=== PATIENT | female | born 1990 | race Caucasian/White ===

== ENCOUNTER 2017-07-28 22:41 | Emergency (ER) | payer BC, MEDICAID ==
[~2017-07-28] VITALS: Ht 160 cm; Wt 55.2 kg
[~2017-07-28 22:41] MED LIST: ACET325T14 PO; BUSP10TA PO; IBUP-1223 PO; IBUP-1484 PO; IBUP200C5; LURA40TA PO; ONDA4TAB7 PO; OXYC-302 PO; PREN1TAB60 PO; SERT50TA PO; ZOLP-413 PO
[2017-07-28] MEDS ORDERED: SODIUM CHLORIDE 0.9% 1,000ML IVBOLUS ONE (23:30)
[2017-07-29 00:12] LABS: HEMATOCRIT 39.3 % (34.6-47.8); HEMOGLOBIN 13.7 g/dL (11.7-16.4); WHITE BLOOD COUNT 5.9 x10^3/uL (3.4-10)
[2017-07-29 00:24] LABS: ASPARTATE AMINO TRANSFERASE 19 U/L (15-37); BLOOD UREA NITROGEN 13 mg/dL (7-18)
[2017-07-29] MEDS ORDERED: ONDANSETRON 2MG/ML, 2ML IVPush ONE (00:30)
[2017-07-29] MEDS ORDERED: ONDANSETRON 2MG/ML, 2ML ONE (00:41)
[2017-07-29] MEDS ORDERED: OMNIPAQUE 350 MG/ML, 100ML BOTTLE ONE (01:02)
[2017-07-29 01:16] LABS: PATH.CAST-FLAG NOT PRESENT; SPERM-FLAG NOT PRESENT; SRC-FLAG NOT PRESENT; XTAL-FLAG NOT PRESENT; YLC-FLAG NOT PRESENT
[2017-07-29] MEDS ORDERED: MORPHINE SULFATE 4 MG/ML, 1ML ONE (01:38)
[2017-07-29] MEDS ORDERED: morphine SULFATE 10 MG/ML, 1ML IVPush ONE (02:00)
[2017-07-29 02:03] VITALS: BP 112/66
== END 2017-07-29 02:06 | disposition home or self-care (01) ==
LOC: ED 23:27
DX: K52.89 Other specified noninfective gastroenteritis and colitis (principal); R10.84 Generalized abdominal pain; G89.29 Other chronic pain; Z90.49 Acquired absence of other specified parts of digestive tract
CPT/HCPCS: 36415; 74177; 80053; 81001; 83690; 84703; 85025; 96361; 96374; 96375; 99285; J2270; J2405; J7030; Q9967

== ENCOUNTER 2018-10-26 16:45 | Inpatient (IN) | payer BC, MEDICAID ==
[~2018-10-26] VITALS: Ht 160 cm; Wt 65.9 kg
[~2018-10-26 16:45] MED LIST changes: +IBUP-1623; -IBUP200C5
[2018-10-26 18:04] LABS: BASOPHILS # (AUTO) 0.05 x10^3/uL (0-0.1); BASOPHILS % (AUTO) 1 % (0-1); EOSINOPHILS # (AUTO) 0.17 x10^3/uL (0-0.4); EOSINOPHILS % (AUTO) 2 % (1-7); LYMPHOCYTES # (AUTO) 0.96 x10^3/uL (1-3.4); LYMPHOCYTES % (AUTO) 12 % (22-44); MD NO; MEAN CORPUSCULAR HEMOGLOBIN 32.3 pg (27.0-34.8); MEAN CORPUSCULAR HGB CONC 34.9 g/dL (32.4-35.8); MEAN CORPUSCULAR VOLUME 92.7 fL (80-100); MONOCYTES # (AUTO) 0.47 x10^3/uL (0.2-0.8); MONOCYTES % (AUTO) 6 % (2-9); NEUTROPHILS # (AUTO) 6.33 x10^3/uL (1.8-6.8); NEUTROPHILS % (AUTO) 79 % (42-75); PLATELET COUNT 173 x10^3/uL (130-400); RED BLOOD COUNT 4.38 x10^6/uL (3.82-5.3); RED CELL DISTRIBUTION WIDTH 14.3 % (9.6-15.2)
[2018-10-26 18:06] LABS: MICROSCOPIC NOT IND
[2018-10-26 18:14] LABS: ALANINE AMINOTRANSFERASE 117 U/L (12-78); ALBUMIN 2.3 g/dL (3.4-5.0); ANION GAP 11 mmol/L (5-15); BILIRUBIN, DIRECT 0.2 mg/dL (0.1-0.2); CHLORIDE 112 mmol/L (98-107)
[2018-10-26 18:16] LABS: ALKALINE PHOSPHATASE 276 U/L (45-117); BILIRUBIN,TOTAL 0.5 mg/dL (0.2-1.0)
[2018-10-26] MEDS ORDERED: OXYTOCIN 30U/ 0.9% NaCL 500ML 500 ML IV ONE (18:31)
[2018-10-26] MEDS ORDERED: OXYTOCIN 30U/ 0.9% NaCL 500ML 500 ML IV PRN (18:31)
[2018-10-26] MEDS ORDERED: D5%-LACTATED RINGERS 1,000 ML IV SCH (18:31)
[2018-10-26] MEDS ORDERED: FENTANYL PF 100 MCG/2ML IVPush PRN (19:00)
[2018-10-26] MEDS ORDERED: FENTANYL PF 100 MCG/2ML IV PRN (19:00)
[2018-10-26] MEDS ORDERED: TERBUTALINE 1 MG/ML, 1ML IVPush PRN (19:00)
[2018-10-26 19:14] LABS: CREATININE,URINE RANDOM 79.7 mg/dL
[2018-10-26] MEDS ORDERED: FENTANYL/BUPIV./NS/PF 250 ML EPIDCONT SCH ×2 (19:31→20:30)
[2018-10-26] MEDS: LACTATED RINGERS 1,000 ML IV SCH ×2 (19:42→20:21)
[2018-10-26] MEDS ORDERED: FENTANYL PF 500 MCG, BUPIVACAINE/PF 0.5%, 30ML 62.5 ML in SODIUM CHLORIDE 0.9% 177.5 ML EPIDCONT SCH (20:00)
[2018-10-26] MEDS ORDERED: LACTATED RINGERS 1,000 ML IV SCH (20:30)
[2018-10-26] MEDS ORDERED: EPHEDRINE 50 MG/ML, 1ML IVPush PRN (20:30)
[2018-10-26] MEDS ORDERED: LACTATED RINGERS 1,000 ML IVBOLUS PRN (20:30)
[2018-10-26] MEDS ORDERED: NALOXONE 0.4 MG/ML, 1ML IVPush PRN (20:30)
[2018-10-26] MEDS ORDERED: BUPIVACAINE 0.25% ONE (20:32)
[2018-10-26] MEDS ORDERED: ONDANSETRON 2MG/ML, 2ML ONE (22:27)
[2018-10-26] MEDS: ONDANSETRON 2MG/ML, 2ML IVPush PRN (22:31)
[2018-10-27] MEDS ORDERED: ACETAMINOPHEN 325 MG TABLET PO PRN ×2 (00:30→06:30)
[2018-10-27] MEDS ORDERED: METOCLOPRAMIDE 5 MG/ML, 2ML IVPush PRN (00:30)
[2018-10-27] MEDS ORDERED: ACETAMINOPHEN 325 MG TABLET ONE (00:34)
[2018-10-27] MEDS ORDERED: METOCLOPRAMIDE 5 MG/ML, 2ML ONE (00:34)
[2018-10-27 00:47] LABS: BASOPHILS # (AUTO) 0.01 x10^3/uL (0-0.1); BASOPHILS % (AUTO) 0 % (0-1); EOSINOPHILS # (AUTO) 0.22 x10^3/uL (0-0.4); EOSINOPHILS % (AUTO) 3 % (1-7); LYMPHOCYTES # (AUTO) 1.03 x10^3/uL (1-3.4); LYMPHOCYTES % (AUTO) 12 % (22-44); MD NO; MEAN CORPUSCULAR HEMOGLOBIN 32.4 pg (27.0-34.8); MEAN CORPUSCULAR HGB CONC 34.7 g/dL (32.4-35.8); MEAN CORPUSCULAR VOLUME 93.3 fL (80-100); MEAN PLATELET VOLUME 9.1 fL (7.4-10.4); MONOCYTES # (AUTO) 0.51 x10^3/uL (0.2-0.8); MONOCYTES % (AUTO) 6 % (2-9); NEUTROPHILS # (AUTO) 6.55 x10^3/uL (1.8-6.8); NEUTROPHILS % (AUTO) 79 % (42-75); PLATELET COUNT 165 x10^3/uL (130-400); RED BLOOD COUNT 4.31 x10^6/uL (3.82-5.3); RED CELL DISTRIBUTION WIDTH 14.3 % (9.6-15.2)
[2018-10-27 00:57] LABS: ALANINE AMINOTRANSFERASE 117 U/L (12-78); ALBUMIN 2.3 g/dL (3.4-5.0); ANION GAP 9 mmol/L (5-15); CALCIUM 7.9 mg/dL (8.5-10.1); CHLORIDE 112 mmol/L (98-107); CREATININE 0.61 mg/dL (0.55-1.02)
[2018-10-27 01:00] LABS: ALKALINE PHOSPHATASE 281 U/L (45-117); BILIRUBIN,TOTAL 0.6 mg/dL (0.2-1.0); TOTAL PROTEIN 5.9 g/dL (6.4-8.2)
[2018-10-27] MEDS ORDERED: ONDANSETRON 2MG/ML, 2ML ONE (05:29)
[2018-10-27] MEDS: ONDANSETRON 2MG/ML, 2ML IVPush PRN (05:31)
[2018-10-27] MEDS ORDERED: OXYTOCIN 30U/ 0.9% NaCL 500ML 500 ML ONE (05:54)
[2018-10-27] MEDS ORDERED: NEWBORN KIT ONE (05:54)
[2018-10-27] MEDS: OXYTOCIN 30U/ 0.9% NaCL 500ML 500 ML IV SCH ×6 (06:25→13:35)
[2018-10-27] MEDS ORDERED: OXYTOCIN 30U/ 0.9% NaCL 500ML 500 ML IV SCH (06:25)
[2018-10-27] MEDS ORDERED: CALCIUM CARBONATE 500 MG TAB.CHEW PO PRN (06:30)
[2018-10-27] MEDS ORDERED: OXYcodone/APAP 5/325MG TABLET PO PRN (06:30)
[2018-10-27] MEDS ORDERED: CARBOPROST TROMETHAMINE 250 MCG/ML, 1ML IM PRN (06:30)
[2018-10-27] MEDS ORDERED: MAGNESIUM HYDROXIDE 8%, 30ML UDC PO PRN (06:30)
[2018-10-27] MEDS ORDERED: ONDANSETRON 2MG/ML, 2ML IV PRN (06:30)
[2018-10-27] MEDS ORDERED: IBUPROFEN 800 MG TABLET PO PRN (06:30)
[2018-10-27] MEDS ORDERED: OXYTOCIN 10 UNITS/ML, 1ML IM PRN (06:30)
[2018-10-27] MEDS ORDERED: IBUPROFEN 600 MG TABLET ONE (06:42)
[2018-10-27 07:18] VITALS: BP 127/73
[2018-10-27 09:00] VITALS: BP 115/77
[2018-10-27] MEDS: PRENATAL VIT/IRON/FA 1 EACH TABLET PO SCH (09:00)
[2018-10-27 11:42] VITALS: BP 109/69
[2018-10-27] MEDS: IBUPROFEN 200 MG TABLET PO PRN ×2 (12:40→19:22)
[2018-10-27] MEDS ORDERED: ONDANSETRON ODT 4 MG PO PRN (14:00)
[2018-10-27] MEDS: OXYcodone/APAP 5/325MG TABLET PO PRN ×3 (14:07→23:56)
[2018-10-27 15:05] LABS: BASOPHILS # (AUTO) 0.01 x10^3/uL (0-0.1); BASOPHILS % (AUTO) 0 % (0-1); EOSINOPHILS % (AUTO) 1 % (1-7); LYMPHOCYTES # (AUTO) 0.89 x10^3/uL (1-3.4); LYMPHOCYTES % (AUTO) 9 % (22-44); MD NO; MEAN CORPUSCULAR HEMOGLOBIN 32.1 pg (27.0-34.8); MEAN CORPUSCULAR HGB CONC 34.1 g/dL (32.4-35.8); MEAN CORPUSCULAR VOLUME 94.2 fL (80-100); MEAN PLATELET VOLUME 9.3 fL (7.4-10.4); MONOCYTES # (AUTO) 0.92 x10^3/uL (0.2-0.8); MONOCYTES % (AUTO) 9 % (2-9); NEUTROPHILS # (AUTO) 8.44 x10^3/uL (1.8-6.8); NEUTROPHILS % (AUTO) 82 % (42-75); PLATELET COUNT 168 x10^3/uL (130-400); RED BLOOD COUNT 3.87 x10^6/uL (3.82-5.3); RED CELL DISTRIBUTION WIDTH 14.5 % (9.6-15.2)
[2018-10-27] MEDS ORDERED: MISOPROSTOL 200 MCG TABLET ONE ×2 (15:42→15:58)
[2018-10-27 16:00] VITALS: BP 135/83
[2018-10-27] MEDS ORDERED: MISOPROSTOL 200 MCG TABLET PR ONE (16:00)
[2018-10-27 17:03] LABS: INTERNATIONAL NORMALIZED RATIO 1.9 (0.93-1.1); PROTHROMBIN TIME 19.6 Seconds (9.6-11.5)
[2018-10-27] MEDS: TRANEXAMIC ACID 650 MG TAB PO SCH (18:23)
[2018-10-27 19:15] VITALS: BP 128/87
[2018-10-27] MEDS: DOCUSATE 100 MG CAPSULE PO PRN (19:22)
[2018-10-27] MEDS ORDERED: RHOGAM FROM BLOOD BANK 1 NOTE EA IM/IV ONE (21:30)
[2018-10-28 00:06] VITALS: BP 121/81
[2018-10-28] MEDS: IBUPROFEN 200 MG TABLET PO PRN ×3 (01:44→13:42)
[2018-10-28] MEDS: TRANEXAMIC ACID 650 MG TAB PO SCH ×2 (01:47→10:42)
[2018-10-28 04:15] VITALS: BP 126/85
[2018-10-28 05:58] LABS: BASOPHILS # (AUTO) 0.01 x10^3/uL (0-0.1); BASOPHILS % (AUTO) 0 % (0-1); EOSINOPHILS # (AUTO) 0.33 x10^3/uL (0-0.4); EOSINOPHILS % (AUTO) 4 % (1-7); LYMPHOCYTES # (AUTO) 0.97 x10^3/uL (1-3.4); LYMPHOCYTES % (AUTO) 11 % (22-44); MD NO; MEAN CORPUSCULAR HEMOGLOBIN 32.6 pg (27.0-34.8); MEAN CORPUSCULAR HGB CONC 35.3 g/dL (32.4-35.8); MEAN CORPUSCULAR VOLUME 92.5 fL (80-100); MEAN PLATELET VOLUME 8.7 fL (7.4-10.4); MONOCYTES # (AUTO) 0.67 x10^3/uL (0.2-0.8); MONOCYTES % (AUTO) 7 % (2-9); NEUTROPHILS # (AUTO) 7.05 x10^3/uL (1.8-6.8); NEUTROPHILS % (AUTO) 78 % (42-75); PLATELET COUNT 159 x10^3/uL (130-400); RED CELL DISTRIBUTION WIDTH 14.4 % (9.6-15.2)
[2018-10-28 06:07] LABS: INTERNATIONAL NORMALIZED RATIO 1.61 (0.93-1.1); PROTHROMBIN TIME 16.8 Seconds (9.6-11.5)
[2018-10-28 07:40] VITALS: BP 122/86
[2018-10-28] MEDS: PRENATAL VIT/IRON/FA 1 EACH TABLET PO SCH (07:47)
[2018-10-28] MEDS: DOCUSATE 100 MG CAPSULE PO PRN (07:47)
[2018-10-28] MEDS: OXYcodone/APAP 5/325MG TABLET PO PRN (10:42)
[2018-10-28] MEDS ORDERED: OXYC-302 PO (12:22)
[2018-10-28] MEDS ORDERED: IBUP-1222 PO (12:22)
[2018-10-28] MEDS ORDERED: TRAN650T3 PO (12:24)
== END 2018-10-28 14:00 | disposition home or self-care (01) | DRG 805 ==
LOC: LDOP 16:45 → LDIP 18:33 → 2NW 10-27 08:44
PROVIDERS: ADMIT Obstetrics & Gynecology; ATTEND Obstetrics & Gynecology
PROC: 3E033VJ Introduction of Other Hormone into Peripheral Vein, Percutaneous Approach (ICD-10-PCS; 2018-10-26)
PROC: 10E0XZZ Delivery of Products of Conception, External Approach (ICD-10-PCS; principal; 2018-10-27)
PROC: 3E0R3BZ Introduction of Anesthetic Agent into Spinal Canal, Percutaneous Approach (ICD-10-PCS; 2018-10-27)
PROC: 00HU33Z Insertion of Infusion Device into Spinal Canal, Percutaneous Approach (ICD-10-PCS; 2018-10-27)
PROC: 3E0334Z Introduction of Serum, Toxoid and Vaccine into Peripheral Vein, Percutaneous Approach (ICD-10-PCS; 2018-10-27)
DX: O14.04 Mild to moderate pre-eclampsia, complicating childbirth (principal); M31.1 Thrombotic microangiopathy; Z37.0 Single live birth; O12.04 Gestational edema, complicating childbirth; O71.89 Other specified obstetric trauma; O71.82 Other specified trauma to perineum and vulva; O13.4 Gestational [pregnancy-induced] hypertension without significant proteinuria, complicating childbirth; O75.89 Other specified complications of labor and delivery; Z87.891 Personal history of nicotine dependence; Z3A.39 39 weeks gestation of pregnancy; Z90.49 Acquired absence of other specified parts of digestive tract
CPT/HCPCS: 36415; J2790; J7121; 80053; 81003; 82248; 82570; 84156; 84550; 85025; 85460; 85461; 85610; 85730; 86850; 86900; 99214; G0378; J2405; J3010; J3490; G0463; J2590; J2765; J7050; J7120